=== PATIENT | female | born 1960 | race Caucasian/White ===

== ENCOUNTER 2016-08-05 07:39 | Day surgery (SDC) | payer OTHER ==
[~2016-08-05] VITALS: Ht 157.5 cm; Wt 95.4 kg
[2016-08-05 08:36] VITALS: Ht 157.5 cm; Wt 95.4 kg
[2016-08-05] MEDS ORDERED: no meds. (08:39)
[2016-08-05 08:56] VITALS: BP 136/80; PULSE 74; RESP 16
[2016-08-05] MEDS ORDERED: PROPOFOL 40 ML ONE (09:45)
[2016-08-05] MEDS ORDERED: LIDOCAINE 2% (SDV) 5 ML INJ ONE (09:45)
[2016-08-05 10:33] VITALS: BP 143/82; PULSE 66; RESP 12
--- NOTE | 2016-08-05 11:42 | GILP ---
DATE OF PROCEDURE: 08/05/2016 NAME OF PROCEDURE: Colonoscopy. SURGEON: Shamir Canada MD PREOPERATIVE DIAGNOSIS: Screening colonoscopy. POSTOPERATIVE DIAGNOSES: 1. Colonoscopy all the way to the cecum. 2. Internal hemorrhoids. 3. No colon neoplasm was identified. INDICATION FOR THE PROCEDURE: Ms. Mary Gonzalez is a 56-year-old female patient who was parish eduled for screening colonoscopy. The procedure and possible complications are well explained to the patient. She understood and cons ented to the procedure. DESCRIPTION OF PROCEDURE: Under the influence of anesthesia, the colonoscope was carefully introduc ed in the rectum and under direct vision; it was advanced all the way to the cecum. FINDINGS: The patient had internal hemorrhoids. No colon neoplasm was identified. She tolerated the procedure very well and there was no complication from the procedure. At the end of the procedures, she was awake with stable vital signs and she was discharged home to the care of her family. IMPRESSION: 1. Colonoscopy all the way to the cecum. 2. Internal hemorrhoids. 3. No colon neoplasm was identified. PLAN: Next screening colonoscopy in 10 years. Dictated By: SHAMIR CANADA MD GD/KATHRYN Conf#: [id number] DID#: [id number] CC: SHAMIR CANADA MD;*EndCC*
== END 2016-08-05 12:28 | disposition home or self-care (01) ==
LOC: GIL 07:39
PROVIDERS: ATTEND Internal Medicine Gastroenterology
DX: Z12.11 Encounter for screening for malignant neoplasm of colon (principal); K64.8 Other hemorrhoids; I10 Essential (primary) hypertension; E66.9 Obesity, unspecified; Z68.38 Body mass index [BMI] 38.0-38.9, adult
CPT/HCPCS: 45378; Z7610